=== PATIENT | male | born 1985 | race Two or more races ===

== ENCOUNTER 2020-09-10 12:04 | Outpatient (REF) | payer SELFPAY | END 2020-09-10 12:05 | disposition home or self-care (01) | LOC: HO.LAB 12:04 | PROVIDERS: Visit Provider Internal Medicine | DX: Z20.828 Contact with and (suspected) exposure to other viral communicable diseases (principal) | CPT/HCPCS: C9803; U0003 ==

== ENCOUNTER 2020-11-09 12:43 | Emergency (ER) | payer OTHER, SELFPAY ==
[2020-11-09 13:30] VITALS: BP 136/92; PULSE 90; RESP 18; TEMP 36.7; O2SAT 97; BMI 22.1
--- NOTE | 2020-11-09 13:43 | XR_ITS ---
EXAMINATION: XR FOOT, RIGHT CLINICAL INFORMATION: Pain/infection the last myelitis. COMPARISON: None TECHNIQUE: AP, lateral, and oblique views of the right foot. FINDINGS: There is no visible acute fracture, dislocation or subluxation moderate dorsal mid foot soft tissue swelling seen. XR/XR foot RT min 3V IMPRESSION: Moderate dorsal midfoot soft tissue swelling. No visible acute fracture or bony abnormality seen.
[2020-11-09] MEDS: cephALEXin 500 MG CAPSULE PO (15:16)
--- NOTE | 2020-11-09 16:49 | ED.GENADULT ---
HPI - General Adult General Chief complaint: Extremity Injury, Lower Stated complaint: rt foot inj,work related Time Seen by Provider: 11/09/20 13:43 History of Present Illness HPI narrative: Patient complains of several days of right foot redness swelling and warmth after he scraped it at work several days ago, no fever, no chills, no dizziness no weakness Related Data Previous Rx's Medication Instructions Recorded cephalexin [Keflex] 500 mg PO QID 7 Days #28 cap 11/09/20 doxycycline hyclate 100 mg PO BID 7 Days #14 cap 11/09/20 Allergies Allergy/AdvReac Type Severity Reaction Status Date / Time No Known Allergies Allergy Verified 11/09/20 13:34 Review of Systems Review of Systems: Positive for right foot redness and pain There is no fever no chills no dizziness no confusion no weakness no chest pain or shortness of breath no abdominal pain no nausea no vomiting PMFSH Past Medical History Source: nursing notes reviewed Medical History (Updated 11/10/20 @ 00:01 by Gay Jeff) Patient denies significant medical history Surgical History (Updated 11/09/20 @ 13:33 by Nadia Monroe) No significant past surgical history Social History Social History Advance Directives: No Advance Directives Information Provided: Yes Physical Exam Vital Signs: Vital Signs: Last Vital Signs Temp 98.0 F 11/09/20 13:30 Pulse 90 11/09/20 13:30 Resp 18 11/09/20 13:30 BP 136/92 H 11/09/20 13:30 Pulse Ox 97 11/09/20 13:30 Body Mass Index 22.1 General appearance comfortable relax no acute distress, A&O x3 The neck is supple Respiratory no acute distress Extremities are full range of motion x4 including right leg and right foot The dorsum of the right foot is red warm and tender, without fluctuance, with out any discharge without lymphangitis, there is full range of motion in the ankle and the foot including all the toes no evidence of any septic joint, the redness does not include the ankle joint, neurovascular intact distal Neuro no focal deficit Course Course Course Narrative: Right foot x-ray did not show any evidence of bony injury or osteomyelitis Patient with cellulitis is treated with outpatient antibiotic and will return for re-evaluation in 2-3 days No evidence of septic joint or sepsis Discharge Plan Discharge Clinical Impression: Cellulitis Patient Disposition: Home, Self-Care Additional Instructions: Return to [facility] or emergency room in 2-3 days for recheck for infection from work-related injury Return to ER any time for spreading redness, worse pain and swelling, fever, any sign of worsening infection or any concerns Prescriptions: New cephalexin [Keflex] 500 mg capsule 500 mg PO QID 7 Days Qty: 28 RF: 0 doxycycline hyclate 100 mg capsule 100 mg PO BID 7 Days Qty: 14 RF: 0 Referrals: [facility] [Provider Group] - 2 days (Right foot cellulitis from injury at work, follow-up, recheck in 2 days) Stand Alone Forms: Work/School Release Interventions: ED Discharge Assessment Last Done: 11/09/20 15:25 Discharge Date/Time: 11/09/20 15:30
== END 2020-11-09 15:30 | disposition home or self-care (01) ==
PROVIDERS: Emergency Provider Emergency Medicine
DX: Z04.2 Encounter for examination and observation following work accident (principal); L03.115 Cellulitis of right lower limb
CPT/HCPCS: 73630; 90471; 90715; 99283; 99284